=== PATIENT | female | born 1960 | race Caucasian/White ===

== ENCOUNTER 2016-12-15 17:30 | Outpatient (CLI) | payer OTHER | END 2016-12-15 17:31 | disposition home or self-care (01) | LOC: NC 17:30 | PROVIDERS: ATTEND Family Medicine | DX: E11.29 Type 2 diabetes mellitus with other diabetic kidney complication (principal); Z71.3 Dietary counseling and surveillance; E66.9 Obesity, unspecified; Z68.41 Body mass index [BMI] 40.0-44.9, adult ==

== ENCOUNTER 2016-12-22 17:30 | Outpatient (CLI) | payer OTHER | END 2016-12-22 17:31 | disposition home or self-care (01) | LOC: NC 17:30 | PROVIDERS: ATTEND Family Medicine | DX: E11.29 Type 2 diabetes mellitus with other diabetic kidney complication (principal); Z71.3 Dietary counseling and surveillance; E66.9 Obesity, unspecified; Z68.41 Body mass index [BMI] 40.0-44.9, adult ==

== ENCOUNTER 2016-12-29 17:30 | Outpatient (CLI) | payer OTHER | END 2016-12-29 17:31 | disposition home or self-care (01) | LOC: NC 17:30 | PROVIDERS: ATTEND Family Medicine | DX: E11.29 Type 2 diabetes mellitus with other diabetic kidney complication (principal); Z71.3 Dietary counseling and surveillance; E66.9 Obesity, unspecified; Z68.41 Body mass index [BMI] 40.0-44.9, adult; Z72.0 Tobacco use ==

== ENCOUNTER 2017-03-22 16:09 | Emergency (ER) | payer OTHER ==
[2017-03-22 17:39] LABS: ABSOLUTE NEUTROPHIL COUNT 7.7 K/mm3 (1.8-7.7); BASO # 0.1 K/mm3 (0.0-0.2); BASO % 0.5 % (0.2-1.0); EOS # 0.2 (0.0-0.5); EOS % 1.4 % (0.9-2.9); HEMATOCRIT 47.4 % (37.0-47.0); HEMOGLOBIN 16.1 gm/l (12.0-16.0); IMM NEUT% 0.4 % (0-1); LYMPH # 2.5 (1.0-4.8); LYMPH % 22.2 % (15-45); MEAN CELL VOLUME 94.4 fl (81.0-99.0); MEAN CORPUSCULAR HEMOGLOBIN 32.1 pg (27.0-31.0); MEAN PLATELET VOLUME 10.2 fl (7.4-10.4); MONO # 0.7 (0.0-0.8); MONO % 5.9 % (4-12); NEUT % 69.6 % (43-75); PLATELET COUNT 263 K/mm3 (130-400); RED CELL DISTRIBUTION WIDTH 12.9 % (11.5-14.5)
[2017-03-22] MEDS ORDERED: KETOROLAC TROMETHAMINE 30 MG/ML 1 ML VIAL ONE (17:43)
[2017-03-22] MEDS ORDERED: SODIUM CHLORIDE 0.9% 1,000 ML ONE (17:43)
[2017-03-22 18:03] LABS: ALB/GLOB RATIO 1.4 (>1.0); ALBUMIN 4.2 gm/dL (3.5-5.7); CALCIUM 10.2 mg/dL (8.6-10.3)
[2017-03-22 18:04] LABS: TROPONIN I < 0.01 ng/ml (0.0-0.06)
[2017-03-22 18:08] LABS: CKMB ISOENZYME 1.5 ng/ml (0.6-6.3)
--- NOTE | 2017-03-22 18:08 | RAD ---
Name: DIOGENES BARBA Exam: Two-view chest Comparison: 07/15/2014 Clinical history: Back pain Findings: 2 views of the chest are submitted. The heart mediastinum and hilar structures are within normal limits. There is no failure, infiltrate, pleural effusion or pneumothorax. Regional skeleton is within normal limits for the patient's age. Impression: No acute cardiopulmonary process
[2017-03-22 18:31] LABS: URINE BILIRUBIN NEGATIVE (NEGATIVE); URINE BLOOD NEGATIVE (NEGATIVE); URINE GLUCOSE (UA) NEGATIVE (NEGATIVE); URINE LEUKOCYTE ESTERASE NEGATIVE (NEGATIVE); URINE NITRITE NEGATIVE (NEGATIVE); URINE PROTEIN NEGATIVE (NEGATIVE); URINE UROBILINOGEN NORMAL (0-1 mg/dl)
[2017-03-22 18:34] LABS: URINE APPEARANCE CLEAR; URINE COLOR YELLOW
[2017-03-22] MEDS ORDERED: LIDO/EPI/TETRACAINE GEL 1 APPLIC/5 ML SYRINGE ONE (18:44)
[2017-03-22] MEDS ORDERED: LIDOCAINE 5% PATCH ONE (18:45)
== END 2017-03-22 19:03 | disposition home or self-care (01) ==
LOC: ED 16:09 → SUPCPDRO 16:09 → ED 19:03
DX: I16.0 Hypertensive urgency (principal); M54.5 Low back pain; R74.0 Nonspecific elevation of levels of transaminase and lactic acid dehydrogenase [LDH]; E78.00 Pure hypercholesterolemia, unspecified; F17.210 Nicotine dependence, cigarettes, uncomplicated; E11.9 Type 2 diabetes mellitus without complications; Z79.84 Long term (current) use of oral hypoglycemic drugs
CPT/HCPCS: 85025; 82553; 80053; 81003; 84484; 71020; 99284 ×2; 96374; 93005; A9270 ×2; J1885; J7030